=== PATIENT | female | born 2000 | race African-American/Black ===

== ENCOUNTER 2024-02-06 10:26 | Outpatient (AMB) | payer OTHER, SELFPAY ==
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
[2024-02-06 10:45] VITALS: BP 108/68; PULSE 80; RESP 12; TEMP 37.1; O2SAT 99; BMI 20.1
== END 2024-02-06 11:21 | disposition home or self-care (01) ==
LOC: HO.HMGFM 10:26
PROVIDERS: Visit Provider Internal Medicine
DX: N92.1 Excessive and frequent menstruation with irregular cycle (principal); Z01.84 Encounter for antibody response examination; Z65.8 Other specified problems related to psychosocial circumstances; T76.91XA Unspecified adult maltreatment, suspected, initial encounter
CPT/HCPCS: 99204; G2211

== ENCOUNTER 2024-02-06 11:24 | Outpatient (REF) | payer OTHER, SELFPAY ==
[2024-02-06 14:24] LABS: MANUAL DIFF FLAG NO
[2024-02-06 14:29] LABS: Basophils Percent Auto 0.4 % (0-2); Eosinophils Absolute Auto 0.1 X10*3/uL (0.0-0.4); Hematocrit 37.4 % (37.0-47.0); Imm Gran Abs Auto 0.02 X10*3/uL (0.00-0.03); Imm Gran Pct Auto 0.3 % (0.0-0.4); Lymphocytes Absolute Auto 1.5 X10*3/uL (1.2-4.9); Lymphocytes Percent Auto 21.3 % (20-40); Mean Corpuscular HGB Conc 34.8 g/dl (31.0-35.0); Mean Corpuscular Hemoglobin 30.1 pg (27.0-33.0); Mean Corpuscular Volume 86.6 fL (80.0-98.0); Mean Platelet Volume 11.7 fL (9.4-12.3); Monocytes Absolute Auto 0.4 X10*3/uL (0.1-1.2); Neutrophils Absolute Auto 5.1 x10*3/uL (2.0-8.3); Platelet Count 216 X10*3/uL (160-400); Red Blood Count 4.32 X10*6/uL (4.20-5.50); Red Cell Distribution Width 14.3 % (11.0-16.0); White Blood Count 7.1 X10*3/uL (4.8-10.8)
[2024-02-06 15:41] LABS: Alanine Aminotransferase 9 U/L (0-31); Albumin Level 4.6 g/dL (3.5-5.0); Alkaline Phosphatase 62 U/L (39-117); Anion Gap 13 (12-20); Aspartate Amino Transferase 14 U/L (5-31); Bilirubin Total 0.2 mg/dL (0.0-1.0); Blood Urea Nitrogen 6 mg/dL (9-16); Calcium 9.6 mg/dL (8.4-10.2); Carbon Dioxide 25 mmol/L (22-29); Chloride 109 mmol/L (96-108); Estimated Glomerular Filt Rate > 60; Glucose Random 67 mg/dL (60-115); Iron 45 mcg/dL (30-160); Percent Iron Saturation 16 % (15-50); Potassium 3.6 mmol/L (3.3-5.1); Sodium 143 mmol/L (135-145); Total Iron Binding Capacity 289 mcg/dL (228-428); Total Protein 7.8 g/dL (6.5-8.0); Unsaturated Iron Binding 244 ug/dL
[2024-02-06 15:56] LABS: TSH reflex Free T4 0.56 uIU/mL (0.32-4.0)
[2024-02-07 04:21] LABS: HBS Num1 0.44 mIU/mL (0-7.99); ~Hepatitis B Surface Antibody NONREACTIVE (Nonreactive)
[2024-02-09 11:03] LABS: TS Negative Control Passed; TS Panel A 0; TS Panel B 0; TS Positive Control Passed; TSpotTB Negative (Negative)
== END 2024-02-06 11:25 | disposition home or self-care (01) ==
LOC: HO.WFDLDS 11:24
PROVIDERS: Visit Provider Internal Medicine
DX: Z01.84 Encounter for antibody response examination (principal); N92.0 Excessive and frequent menstruation with regular cycle; N92.6 Irregular menstruation, unspecified
CPT/HCPCS: 36415; 80053; 83540; 84443; 85025; 86481; 86706

== ENCOUNTER 2024-03-28 09:48 | Outpatient (REF) | payer OTHER, SELFPAY ==
[2024-03-29 11:37] LABS: Bacterial Vaginosis PCR POSITIVE (Negative); Candida Group PCR NOT DETECTED (Not Detect); Candida glab krusei PCR NOT DETECTED (Not Detect); Trichomonas vaginalis PCR NOT DETECTED (Not Detect)
[2024-03-29 13:34] LABS: CT PCR NOT DETECTED (Not Detect.); NG PCR NOT DETECTED (Not Detect.)
== END 2024-03-28 09:49 | disposition home or self-care (01) ==
LOC: HO.LAB 09:48
PROVIDERS: Visit Provider Advanced Practice Midwife
DX: N89.8 Other specified noninflammatory disorders of vagina (principal)
CPT/HCPCS: 0352U; 87491; 87591

== ENCOUNTER 2024-03-28 09:48 | Outpatient (AMB) | payer OTHER, SELFPAY ==
--- NOTE | 2024-03-28 09:58 | MHC.OFFVIS ---
Vital Signs 03/28/24 10:01 Height 5 ft 5 in Weight 116 lb BMI 19.3 BP 110/60 Intake Visit Reasons: New patient irregular menses Construction Laborer Required: No Construction Laborer Services: Construction Laborer Present Information Interpreted: clinical only Civil Draftsman: Civil Draftsman Present Allergies No Known Allergies Allergy (Verified 03/28/24 09:58) Medication List - Last Reconciled 03/28/24 by Emily Hensley CNM No Known Home Meds Is last menstrual period known: Yes Last menstrual period: 03/04/24 Do you need a note to return to daycare/school/sports/work: No HPI HPI New patient irregular menses: Details: Patient is scheduled not for an annua exam but to discuss her irregular menses. She is here because she said she bled though somewhat lightly for all of january. When I inquired as to whether not she could have been she said she was not because the last time she had sex was the previous month. Asked her if she had done a test and she said she had not. She said she had not had a pelvic exam before but on direct questioning she also stated that she had been seen by an urgent care site somewhere in [place] last August and was diagnosed with HSV 2. At the very end of the appointment she expressed very much concerned that her mother would find out about this she tells me that she was not on any medication for and was told there was not anything to do about it but that she was getting outbreaks about every month with her. And they would last about 6-7 days but they were not at all as bad as the 1st 1 which was 2 weeks. She is sexually active and she does know to abstain when she believes she has an outbreak and she does. She has not on any particular method of control she would rather not be at this time. She said she was concerned because she had very irregular periods when she was in high school and they want to put her on control pills but her mother did not want her to because she believes that it would contribute to sexual activity. She is not on any method of control now her periods accept for the unusual bleed in January that she had which was the 1st time since high school, her periods by her description come as a month and they last about 6-7 days and they are heavy and crampy for the 1st 3-4 days and then they lighten up. 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 PFSH Family History Other FH: mental illness Substance abuse Social History Housing: House (lives with Aunt ) Patient Tobacco Use Status: Never used Tobacco e-Cigarette/Vaping Use: Never Used Substance Use Type: Marijuana service: No Current occupational status: employed Current occupation: [employer] Current occupational exposures/hazards: No Cognitive needs: No Hearing needs: No Vision needs: Yes (Near sighted) Female Reproductive History Menstrual Age of Menarche: 12 Date of last menstrual period: 03/04/24 control method: none Total pregnancies: 0 History of abnormal pap smear: No (no previous pap) Physical Exam Vital Signs: Last Vital Signs BP 110/60 03/28/24 10:01 BMI result Body Mass Index 19.3 Other: Vagina pink and moist cervix nulliparous pink smooth healthy appearing no abnormal discharge adnexa nontender uterus small anteverted mobile nontender no abnormal discharge and good tone with Kegel. External Female Exam: normal external appearance Speculum Exam - Vagina: normal appearance of the vagina and normal vaginal discharge Speculum Exam - Cervix: normal appearance of the cervix Bimanual exam- vagina & uterus: normal bimanual exam, uterine size normal, consistency normal, uterine mobility normal, uterine shape normal and non-tender Bimanual Exam- Adnexa, other: normal adnexae, no masses and No adnexal tenderness Assessment & Plan Assessment & Plan (1) Heavy menses: Comment: referral to sports physician; see note for details, declined both ultrasound and OCPs. Code(s): N92.0 - Excessive and frequent menstruation with regular cycle Category: Medical Qualifiers: Menorrhagia type: with irregular cycle Qualified Code(s): N92.1 - Excessive and frequent menstruation with irregular cycle (2) History of irregular menstrual bleeding: Comment: Patient cites history of irregular menses in high school, regular after that, until she bled for the month of 01/2024, normal menses in March.... See note. Code(s): Z87.42 - Personal history of other diseases of the female genital tract Category: Medical Plan Patient is scheduled not for an annua exam but to discuss her irregular menses. She is here because she said she bled though somewhat lightly for all of january. When I inquired as to whether not she could have been she said she was not because the last time she had sex was the previous month. Asked her if she had done a test and she said she had not. She said she had not had a pelvic exam before but on direct questioning she also stated that she had been seen by an urgent care site somewhere in [place] last August and was diagnosed with HSV 2. At the very end of the appointment she expressed very much concerned that her mother would find out about this she tells me that she was not on any medication for and was told there was not anything to do about it but that she was getting outbreaks about every month with her. And they would last about 6-7 days but they were not at all as bad as the 1st 1 which was 2 weeks. She is sexually active and she does know to abstain when she believes she has an outbreak and she does. She has not on any particular method of control she would rather not be at this time. She said she was concerned because she had very irregular periods when she was in high school and they want to put her on control pills but her mother did not want her to because she believes that it would contribute to sexual activity. She is not on any method of control now her periods accept for the unusual bleed in January that she had which was the 1st time since high school, her periods by her description come as a month and they last about 6-7 days and they are heavy and crampy for the 1st 3-4 days and then they lighten up. 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 So I did educate the patient about HSV in great detail and other STIs and that she needs a Pap smear in the future visit and offered her Valtrex for suppression as it can be used both for suppression if anyone has outbreaks more than 5 to 6 times a year or episodically but she declined both. I also offered her control pills to help regulate her periods and make them hyperbaric welder diver and she declined those as well. I also shared with her that she [facility] for her Additionally I offered her pelvic ultrasound just to see if perhaps there was ovarian cyst or something that could be contributing to and irregular bleeding pattern but she declined that as well in terms of figuring out why she bled for the month of January there has no way of telling that for now and if she had been and it represented in early miscarriage, there was no way to know that now. Orders: Orders Bacterial Vaginosis Panel Today N89.8 - Other specified noninflammatory disorders of vagina CT NG by PCR Today N89.8 - Other specified noninflammatory disorders of vagina Coding Level of Care Code New Pt Level 4 (49136) Diagnoses Menorrhagia with irregular cycle N92.1 Menorrhagia type: with irregular cycle History of irregular menstrual bleeding Z87.42
[2024-03-28 10:01] VITALS: BP 110/60; BMI 19.3
== END 2024-03-28 11:01 | disposition home or self-care (01) ==
LOC: HO.HWSM 09:48
PROVIDERS: Visit Provider Advanced Practice Midwife
DX: N92.1 Excessive and frequent menstruation with irregular cycle (principal); Z87.42 Personal history of other diseases of the female genital tract
CPT/HCPCS: 99204